=== PATIENT | male | born 1980 | race Caucasian/White ===

== ENCOUNTER 2020-04-11 16:28 | Emergency (ER) | payer OTHER ==
--- OUTSIDE RECORDS SUMMARY | 2020-04-11 16:30 | XMS REPORT | Continuity of Care Document ---
:1980 Author Organization [facility] t Address [address] [place] [address] Care Team Providers Name Role Phone Lab, [facility] Pob I Attending Clinician Unavailable Jann SOSA Attending Clinician Problems This patient has no known problems. Allergies, Adverse Reactions, Alerts This patient has no known allergies or adverse reactions. Medications This patient has no known medications. Procedures This patient has no known procedures. Encounters Start End Encounter Admission Attending Care Care Encounter Source Date/Time Date/Time Type Type Clinicians Facility Department ID 2020-03-19 2020-03-19 Laboratory Lab, [facility] [id number] 16:43:13 17:03:13 Only Fam Pob I Health [id number] [place] [id number] Professio [phone] nal 044 Office Building One 2019-06-19 2019-06-19 Office Jann, [facility] [id number] 15:03:31 15:23:31 Visit Riley [place] [id number] [place] [id number] Professio [phone] nal 059 Building Results This patient has no known results.
--- OUTSIDE RECORDS SUMMARY | 2020-04-11 16:30 | XMS REPORT | Summary of Care ---
:1980 Author Organization [facility] Address [address] [place] [address] Care Team Providers Name Role Phone [place], [place] Chaitanya Jimenez [facility] Primary Care Provider + Reason for Visit Reason Comments Cough Headache Shortness of Breath Encounter Details Date Type Department Care Team Description 03/19/2020 Laboratory Only [facility] Family MartineKacy, RABIES INSPECTOR [address] [place] [address] [phone] Exposure to Medicine - [facility], Adc Fam Pob I SARS-associated [address] [place] [address] coronavir[address] s ([address] Dx) [place] [address] Allergies No Known Allergiesdocumented as of this encounter (statuses as of 03/19/2020) Medications Medication Sig Dispensed Refills Start Date End Date Status metFORMIN 500 mg tablet Take 500 mg by 0 Active mouth 2 (two) times daily with meals. ranitidine 150 mg Take 150 mg by 0 Active capsule mouth 2 (two) times daily. buPROPion XL 150 mg 24 Take 150 mg by 0 Active hr tablet mouth daily. traZODone 50 mg tablet Take 50 mg by 0 Active mouth at bedtime. atorvastatin 40 mg Take 40 mg by 0 Active tablet mouth at bedtime. albuterol 0.63 mg/3 mL Use 1 Ampule as 0 Active nebulizer solution directed every 6 (six) hours as needed for Wheezing. amlodipine-benazepril Take 1 capsule by 0 Active 5-10 mg per capsule mouth daily. aspirin 81 mg chewable Take 81 mg by 0 Active tablet mouth daily. lisinopril 20 mg tablet Take 20 mg by 0 Active mouth daily. metoprolol succinate XL Take 100 mg by 0 Active 100 mg 24 hr tablet mouth daily. cloNIDine 0.1 mg Take 1 tablet by 30 tablet 0 04/01/2019 Active tabletIndications: mouth 2 (two) Fever, unspecified times daily. T 1 fever cause, tablet for high Hypertension, bp sys> 200 or unspecified type, dys >100. Take no Myalgia, Nonintractable more than 2 headache, unspecified tablets and see chronicity pattern, your doctor for unspecified headache your blood type, Transient pressure. disorientation documented as of this encounter (statuses as of 03/19/2020) Active Problems No known active problemsdocumented as of this encounter (statuses as of 03/19/2020) Immunizations Name Administration Dates Next Due Influenza Virus Vaccine Quad IM 3+ YRS 12/03/2018 documented as of this encounter Social History Tobacco Use Types Packs/Day Years Used Date Former Smoker Cigarettes 1 17 Quit: 05/2018 Smokeless Tobacco: Never Used Sex Assigned at Date Recorded Not on file documented as of this encounter Last Filed Vital Signs Not on filedocumented in this encounter Nursing Notes Keo Link - 03/19/2020 4:40 PM CSTDojany Ellis is a 40 year old male here for COVID Screening with a Nasopharyngeal Swab All droplet and contact precautions taken with appropriate PPE worn while interacting with patient. ? Goggles ? N95 Mask ? Gloves ? Gown RR 18 Pulse Ox 94% Patient educated on plan of care for visit, swabbing technique, risks and benefits of test and length of time to receive results. Verbal consent obtained to perform test. CDC Fact Sheet for Patients nCoV Diagnostic Panel dated 06/17/2019 and Factsheet What to Do if Sick with COVID 19 05/28/19 provided. Patient swabbed per appropriate nasopharyngeal technique, and patient tolerated well. Patient was discharged from the testing clinic in stable condition. Keo Link 03/19/2020 4:48 PM documented in this encounter Plan of Treatment Name Type Priority Associated Diagnoses Order S chedule COVID-19 (MOLECULAR LAB Routine Exposure to Expected : 03/19/2020, TESTING SARS-associated Expires: 021 NUCLEIC ACID coronavirus AMPLIFICATION) Health Maintenance Due Date Last Done Comments HgA1C 1979 EYE EXAM 1988 LDL-C 1988 URINE MICROALBUMIN 1988 FOOT EXAM 1996 DTaP,Tdap,and Td Vaccines (1 1997 - Tdap) INFLUENZA VACCINE (#1) 2019 12/03/2018 CREATININE (SERUM) 04/01/2020 04/01/2019, 12/17/2018, 01/20/2015 Depression Screening 06/18/2020 06/19/2019 PNEUMOCOCCAL 0-64 YEARS Aged Out No longe r eligible based COMBINED SERIES on patient's age to complete this to [facility] documented as of this encounter Results Not on filedocumented in this encounter Visit Diagnoses Diagnosis Exposure to SARS-associated coronavirus - Primary documented in this encounter Additional Health Concerns Infection Onset Date Last Indicated Resolved Time COVID-19 Rule Out 03/19/2020 03/19/2020 documented as of this encounter documented as of this encounter
[2020-04-11 17:17] LABS: Absolute Lymphocytes (CBC) 1.6 K/uL (0.7-4.9); Basophils % 0.6 % (0-1.3); Hematocrit 47.5 % (39.6-49.0); Lymphocytes % 35.2 % (15.3-44.8); MPV 8.9 fL (7.6-11.3); Protime INR 1.03; RBC Red Blood Cell Count 5.16 M/uL (4.33-5.43)
[2020-04-11 17:31] LABS: ALT/SGPT 38 U/L (12-78); AST/SGOT 12 U/L (15-37); Albumin 4.5 g/dL (3.4-5.0); Alkaline Phosphatase 65 U/L (45-117); BUN Blood Urea Nitrogen 9 mg/dL (7-18); Bicarbonate 35 mmol/L (21-32); Bilirubin Direct 0.3 mg/dL (0-0.2); Bilirubin Total 1.1 mg/dL (0.2-1.0); Glucose Level 237 mg/dL (74-106); Magnesium 2.1 mg/dL (1.8-2.4); NT PRO-BNP 70 pg/mL (<125); Potassium 3.6 mmol/L (3.5-5.1); Protein, Total 8.1 g/dL (6.4-8.2); Sodium Level 137 mmol/L (136-145); Troponin (Emerg Dept Use Only) < 0.02 ng/mL (0.0-0.045)
[2020-04-11] MEDS ORDERED: METOPROLOL TAR 50 MG TAB ONE (18:33)
--- NOTE | 2020-04-11 18:44 | RAD REPORT ---
EXAM DESCRIPTION: CT - Angio Aorta For Dissection - 04/11/2020 6:34 pm CLINICAL HISTORY: CHEST PAIN COMPARISON: None. TECHNIQUE: Dynamically enhanced 3 mm thick images of the chest, abdomen, and upper pelvis were obtai jose during administration of approximately 150mL Isovue 370 IV contrast. Sagittal and coronal reconst ruction images were generated using MIP and reviewed. Exam utilizes a protocol to evaluate entire cou rse of the aorta. All CT scans are performed using dose optimization technique as appropriate and may include automated exposure control or mA/KV adjustment according to patient size. FINDINGS: Aorta is normal in diameter with no dissection or other acute aortic findings. Reconstruct ion images show no significant findings. Pulmonary arteries are normal as well. No cardiomegaly, pericardial thickening or pericardial effusio n. No mass or infiltrate in the lung parenchyma. A few small 5 mm or less subpleural nodules are seen. N o pleural thickening, pleural effusion or pneumothorax. No abnormal mediastinal or hilar mass or lymphadenopathy seen. No chest wall mass or abnormal axillar y lymphadenopathy. Celiac, SMA and renal arteries show no suspicious findings. Solid abdominal viscera and bowel show no significant findings. Liver shows fatty infiltration. No mass or abnormal abdominal or pelvic lymph adenopathy. Rectosigmoid anastomotic sites show no suspicious findings. No free air, free fluid or in flammatory stranding. No urinary bladder abnormality. IMPRESSION: Negative CT scan of the aorta. No other significant findings on chest, abdomen and upper pelvis examination.Incidental note made of fatty infiltration of the liver.
--- NOTE | 2020-04-11 19:48 | ER ---
[facility] Name: Artemio Ellis Age: 40 yrs Sex: Male : 1980 Arrival Date: 04/11/2020 Time: 16:34 Bed 16 Private MD: Diagnosis: Chest pain on breathing;Chest pain, unspecified Presentation: 04/11 16:35 Chief complaint: EMS states: pt having chest pain this morning, [facility], no st elevation noted on [facility] e[facility], [facility], the pain did resolve, said he was sitting when it happened, he is tachy but says pain has resolved now. Coronavirus screen: At this time, the client does not indicate any symptoms associated with coronavirus-19. Ebola Screen: Patient denies travel to an Ebola-affected area in the 21 days before illness onset. Initial Sepsis Screen: Does the patient meet any 2 criteria? No. Patient's initial sepsis screen is negative. Initial Sepsis Screen: Does the patient have a suspected source of infection? No. Patient's initial sepsis screen is negative. Risk Assessment: Do you want to hurt yourself or someone else? Patient reports no desire to harm self or others. Onset of symptoms was April 11, 2020. 16:35 Method Of Arrival: EMS: [facility] tw2 16:35 Acuity: YASIR 3 tw2 Triage Assessment: 16:45 General: Appears in no apparent distress. obese, well groomed, Behavior is calm, tw2 cooperative, appropriate for age. Pain: Denies pain. Historical: - Allergies: 16:45 No Known Allergies; tw2 - Home Meds: 16:45 albuterol sulfate 1.25 mg/3 mL Inhl nebu 3 mL 3 times per day [Active]; amlodipine 5 mg tw2 tab 1 tab once daily [Active]; aspirin 81 mg Oral chew 1 tab once daily [Active]; atorvastatin 40 mg oral tab 1 tab once daily [Active]; bupropion HCl 300 mg Oral Tb24 1 tab once daily [Active]; lisinopril 20 mg Oral tab 1 tab once daily [Active]; trazodone 50 mg Oral tab 1 tab 3 times per day [Active]; - PMHx: 16:45 Alcoholism; Diabetes - NIDDM; GERD; hirschsprungs syndrome; Hypertension; no-suicide tw2 attempts; Pneumonia; ptsd-on disability; Sleep Apnea; suicidal ideation; hiatal hernia; obstructive sleep apnea; - PSHx: 16:45 abdominal sx; Cholecystectomy; tw2 - Immunization history:: Adult Immunizations. - Social history:: Smoking status: Smoking status: Patient denies any tobacco usage or history of. Screenin:43 Abuse screen: Denies threats or abuse. Denies injuries from another. Nutritional ec1 screening: No deficits noted. Tuberculosis screening: No symptoms or risk factors identified. Fall Risk None identified. Assessment: 16:42 General: Appears in no apparent distress. comfortable, Behavior is calm, cooperative. ec1 Pain: Denies pain. Pain: Denies pain. Neuro: Level of Consciousness is awake, alert, obeys commands. Cardiovascular: Reports Rhythm is sinus tachycardia. Respiratory: Airway is patent Respiratory effort is even, unlabored, Breath sounds are clear bilaterally. GI: No signs and/or symptoms were reported involving the gastrointestinal system. : No signs and/or symptoms were reported regarding the genitourinary system. EENT: No signs and/or symptoms were reported regarding the EENT system. 18:02 Reassessment: No changes from previously documented assessment. Patient and/or family ec1 updated on plan of care and expected duration. Pain level reassessed. Pt reports pain at 3/10 in left chest. Pain: Pain does not radiate. Pain began today this am. 20:09 General: Appears in no apparent distress. comfortable, Behavior is calm, cooperative, zb appropriate for age. Pain: Denies pain. Neuro: Level of Consciousness is awake, alert, obeys commands, Oriented to person, place, time, situation. Cardiovascular: Reports None Heart tones S1 S2 present Rhythm is regular. Respiratory: Airway is patent Respiratory effort is even, unlabored, Respiratory pattern is regular, symmetrical, Breath sounds are clear bilaterally. GI: No signs and/or symptoms were reported involving the gastrointestinal system. : No signs and/or symptoms were reported regarding the genitourinary system. EENT: No signs and/or symptoms were reported regarding the EENT system. Derm: Skin is intact, is healthy with good turgor, Skin is dry, Skin is normal, Skin temperature is warm. Musculoskeletal: Circulation, motion, and sensation intact. Capillary refill < 3 seconds, in bilateral fingers. Range of motion: intact in all extremities. Vital Signs: 16:35 Temp 99(TE); Weight 96.62 kg (R); Height 5 ft. 8 in. (172.72 cm); Pain 0/10; tw2 16:35 Resp 18; tw2 17:30 BP 150 / 112; Pulse 97; Resp 16 S; Pulse Ox 91% on R/A; ec1 17:30 BP 144 / 108; Pulse 99; Resp 16 S; Pulse Ox 96% on R/A; Pain 3/10; ec1 18:52 BP 141 / 104; Pulse 80; Resp 16 S; Pulse Ox 96% on R/A; ec1 19:58 BP 135 / 97; Pulse 70; Resp 17; Temp 97.8; Pulse Ox 97% ; Pain 0/10; ar5 16:35 Body Mass Index 32.39 (96.62 kg, 172.72 cm) tw2 ED Course: 16:34 Patient arrived in ED. tw2 16:38 Ayesha Schwab [facility]-C [facility] kb 16:38 Jarred Faust MD is Attending Physician. kb 16:40 Triage completed. tw2 16:42 Beverley Maciel, LEEANNA is Primary Nurse. ec1 16:45 Arm band placed on. tw2 17:05 Inserted saline lock: 20 gauge in left hand, using aseptic technique. Blood collected. ec1 17:06 Patient has correct armband on for positive identification. Bed in low position. ec1 clinical biostatistics director on. 17:24 XRAY Chest (1 view) In Process Unspecified. EDMS 18:01 Patient maintains SpO2 saturation greater than 95% on room air. ec1 18:34 CT Aorta for Dissection In Process Unspecified. EDMS 19:23 Report given to Dora DURÁN. ec1 20:10 No provider procedures requiring assistance completed. IV discontinued, intact, zb bleeding controlled, No redness/swelling at site. Pressure dressing applied. Administered Medications: 18:19 Drug: Metoprolol TARTRATE (Lopressor) 50 mg Route: PO; ec1 19:25 Follow up: Response: Blood pressure is lowered ec1 Outcome: 19:48 Discharge ordered by . kb 20:10 Discharged to home ambulatory. zb 20:10 Condition: stable 20:10 Discharge instructions given to patient, Instructed on discharge instructions, follow up and referral plans. Demonstrated understanding of instructions, follow-up care. 20:10 Patient left the ED. zb Signatures: Dispatcher [employer] EDAyesha Edwards, TONY FRASER-Mayra Betts RN RN tw2 Zoraida Michele ar5 Dora Copeland RN RN Beverley Mccarthy RN RN ec1 Corrections: (The following items were deleted from the chart) 19:59 19:58 BP 135 / 97; Pulse 10bpm; Resp 17bpm; Pulse Ox 97%; Temp 97.8F; Pain 0/10; ar5 ar5
--- NOTE | 2020-04-11 19:48 | EDPHYS ---
Physician Documentation [facility] Name: Artemio Ellis Age: 40 yrs Sex: Male : 1980 Arrival Date: 04/11/2020 Time: 16:34 Bed 16 Private MD: ED Physician Jarred Faust HPI: 04/11 17:48 This 40 yrs old Male presents to ER via EMS with complaints of Chest Pain > kb 28 y/o. 17:48 The patient or guardian reports chest pain that is located primarily in the anterior kb chest wall, left. Onset: this morning. The pain does not radiate. Associated signs and symptoms: Pertinent positives: nausea. The chest pain is described as a pressure. Duration: The patient or guardian reports multiple episodes, that are intermittent, with no pattern. Modifying factors: The symptoms are alleviated by nothing. the symptoms are aggravated by nothing. Severity of pain: At its worst the pain was mild moderate in the emergency department the pain has resolved. The patient has not experienced similar symptoms in the past. The patient has been recently seen by a physician: the patient's primary care provider, with similar presenting complaints, and was sent to the [facility] Emergency Department for further evaluation. Pt reports left upper chest pain that started this morning while at work. Reports it has been intermittent throughout the day with nausea at one point and back pain at another time. Pt denies any symptoms at this time. [place] for [place] and was sent here by EMS for evaluation.. Historical: - Allergies: 16:45 No Known Allergies; tw2 - Home Meds: 16:45 albuterol sulfate 1.25 mg/3 mL Inhl nebu 3 mL 3 times per day [Active]; amlodipine 5 mg tw2 tab 1 tab once daily [Active]; aspirin 81 mg Oral chew 1 tab once daily [Active]; atorvastatin 40 mg oral tab 1 tab once daily [Active]; bupropion HCl 300 mg Oral Tb24 1 tab once daily [Active]; lisinopril 20 mg Oral tab 1 tab once daily [Active]; trazodone 50 mg Oral tab 1 tab 3 times per day [Active]; - PMHx: 16:45 Alcoholism; Diabetes - NIDDM; GERD; hirschsprungs syndrome; Hypertension; no-suicide tw2 attempts; Pneumonia; ptsd-on disability; Sleep Apnea; suicidal ideation; hiatal hernia; obstructive sleep apnea; - PSHx: 16:45 abdominal sx; Cholecystectomy; tw2 - Immunization history:: Adult Immunizations. - Social history:: Smoking status: Smoking status: Patient denies any tobacco usage or history of. ROS: 17:47 Constitutional: Negative for fever, chills, and weight loss, Respiratory: Negative for kb shortness of breath, cough, wheezing, and pleuritic chest pain, Back: Negative for injury and pain, MS/Extremity: Negative for injury and deformity, Skin: Negative for injury, rash, and discoloration, Neuro: Negative for headache, weakness, numbness, tingling, and seizure. 17:47 Cardiovascular: Positive for chest pain, Negative for edema, orthopnea, palpitations, paroxysmal nocturnal dyspnea. 17:47 Abdomen/GI: Positive for nausea, Negative for abdominal pain, vomiting, diarrhea. Exam: 17:47 Constitutional: This is a well developed, well nourished patient who is awake, alert, kb and in no acute distress. Head/Face: Normocephalic, atraumatic. Chest/axilla: Normal chest wall appearance and motion. Nontender with no deformity. No lesions are appreciated. Cardiovascular: Regular rate and rhythm with a normal S1 and S2. No gallops, murmurs, or rubs. Normal PMI, no JVD. No pulse deficits. Respiratory: Lungs have equal breath sounds bilaterally, clear to auscultation and percussion. No rales, rhonchi or wheezes noted. No increased work of breathing, no retractions or nasal flaring. Abdomen/GI: Soft, non-tender, with normal bowel sounds. No distension or tympany. No guarding or rebound. No evidence of tenderness throughout. Skin: Warm, dry with normal turgor. Normal color with no rashes, no lesions, and no evidence of cellulitis. MS/ Extremity: Pulses equal, no cyanosis. Neurovascular intact. Full, normal range of motion. Neuro: Awake and alert, GCS 15, oriented to person, place, time, and situation. Cranial nerves II-XII grossly intact. Motor strength 5/5 in all extremities. Sensory grossly intact. Cerebellar exam normal. Normal gait. Vital Signs: 16:35 Temp 99(TE); Weight 96.62 kg (R); Height 5 ft. 8 in. (172.72 cm); Pain 0/10; tw2 16:35 Resp 18; tw2 17:30 BP 150 / 112; Pulse 97; Resp 16 S; Pulse Ox 91% on R/A; ec1 17:30 BP 144 / 108; Pulse 99; Resp 16 S; Pulse Ox 96% on R/A; Pain 3/10; ec1 18:52 BP 141 / 104; Pulse 80; Resp 16 S; Pulse Ox 96% on R/A; ec1 19:58 BP 135 / 97; Pulse 70; Resp 17; Temp 97.8; Pulse Ox 97% ; Pain 0/10; ar5 16:35 Body Mass Index 32.39 (96.62 kg, 172.72 cm) tw2 MDM: 16:38 Patient medically screened. kb 17:47 Data reviewed: vital signs, nurses notes. Data interpreted: Pulse oximetry: on room air kb is 100 %. Interpretation: normal. 17:48 The patient was not given aspirin in the Emergency Department. Patient reports taking kb aspirin within the past 24 hours. 19:47 Counseling: I had a detailed discussion with the patient and/or guardian regarding: the kb historical points, exam findings, and any diagnostic results supporting the discharge/admit diagnosis, lab results, radiology results, the need for outpatient follow up, a electroplating technician, to return to the emergency department if symptoms worsen or persist or if there are any questions or concerns that arise at home. 04/11 16:44 Order name: Basic Metabolic Panel; Complete Time: 17:32 kb 04/11 16:44 Order name: CBC with Diff; Complete Time: 17:42 kb 04/11 16:44 Order name: LFT's; Complete Time: 17:32 kb 04/11 16:44 Order name: Magnesium; Complete Time: 17:32 kb 04/11 16:44 Order name: NT PRO-BNP; Complete Time: 17:32 kb 04/11 16:44 Order name: PT-INR; Complete Time: 17:39 kb 04/11 16:44 Order name: Troponin (emerg Dept Use Only); Complete Time: 17:32 kb 04/11 16:44 Order name: XRAY Chest (1 view); Complete Time: 20:03 kb 04/11 16:44 Order name: EKG; Complete Time: 16:45 kb 04/11 16:44 Order name: Cardiac monitoring; Complete Time: 16:57 kb 04/11 18:05 Order name: CT Aorta for Dissection; Complete Time: 18:58 kb 04/11 18:59 Order name: Troponin (emerg Dept Use Only); Complete Time: 19:44 kb 04/11 18:59 Order name: EKG; Complete Time: 18:59 kb 04/11 16:44 Order name: EKG - Nurse/Tech; Complete Time: 17:13 kb 04/11 16:44 Order name: IV Saline Lock; Complete Time: 17:06 kb 04/11 16:44 Order name: Labs collected and sent; Complete Time: 17:06 kb 04/11 16:44 Order name: O2 Per Protocol; Complete Time: 17:06 kb 04/11 16:44 Order name: O2 Sat Monitoring; Complete Time: 17:06 kb 04/11 17:47 Order name: Vital Signs; Complete Time: 18:01 kb 04/11 18:59 Order name: EKG - Nurse/Tech; Complete Time: 19:32 kb Administered Medications: 18:19 Drug: Metoprolol TARTRATE (Lopressor) 50 mg Route: PO; ec1 19:25 Follow up: Response: Blood pressure is lowered ec1 Disposition: 04/12 07:02 Co-signature as Attending Physician, Jarred Faust MD. rn Disposition: 04/11/20 19:48 Discharged to Home. Impression: Chest pain on breathing, Chest pain, unspecified. - Condition is Stable. - Discharge Instructions: Nonspecific Chest Pain, [id number]. - Medication Reconciliation Form, Thank You Letter, Antibiotic Education, Prescription Opioid Use form. - Follow up: Emergency Department; When: As needed; Reason: Worsening of condition. Follow up: Private Physician; When: 2 - 3 days; Reason: Recheck today's complaints, Continuance of care, Re-evaluation by your physician. Signatures: Dispatcher [employer] Ayesha Chavira, BRIA-C RETAIL EVENT COORDINATOR-Jarred Pereira MD MD rn Wise, Tara, RN RN tw2 Dora Copeland RN Beverley Romero RN RN ec1 Corrections: (The following items were deleted from the chart) 04/11 20:10 19:48 04/11/2020 19:48 Discharged to Home. Impression: Chest pain on breathing; Chest zb pain, unspecified. Condition is Stable. Forms are Medication Reconciliation Form, Thank You Letter, Antibiotic Education, Prescription Opioid Use. Follow up: Emergency Department; When: As needed; Reason: Worsening of condition. Follow up: Private Physician; When: 2 - 3 days; Reason: Recheck today's complaints, Continuance of care, Re-evaluation by your physician. kb
--- NOTE | 2020-04-11 20:01 | RAD REPORT ---
EXAM DESCRIPTION: RAD - Chest Single View - 04/11/2020 5:23 pm CLINICAL HISTORY: CHEST PAIN COMPARISON: None TECHNIQUE: AP portable chest image was obtained 04/11/2020 5:23 pm . FINDINGS: Lungs are clear. Low lung volumes noted. Cardiac silhouette is prominent, accentuated by b lianna habitus, portable technique and shallow inspiration affects. No significant failure or volume ove rload suspected. No measurable pleural effusion and no pneumothorax. No acute bony abnormality seen. No acute aortic findings suspected. IMPRESSION: No acute cardiopulmonary process.
[2020-04-11 20:29] VITALS: BP 135/97; TEMP 97.8; O2SAT 97
--- NOTE | 2020-04-11 22:30 | EKG ---
Test Date: 2020-04-11 Test Time: 17:04:11 Meat Grading Machine Operator: MANSOOR MEASUREMENT RESULTS: Intervals: Rate: 102 [place]: 150 QRSD: 84 QT: 344 QTc: 448 [place]: P: 63 [place]: 150 QRS: 112 T: 54 INTERPRETIVE STATEMENTS: Sinus tachycardia Left posterior fascicular block Abnormal ECG No previous ECG available for comparison Electronically Signed On 04-11-20 22:29:17 PROSTHETIST by Román Pierce
--- NOTE | 2020-04-13 07:28 | EKG ---
Test Date: 2020-04-11 Test Time: 19:30:01 Office Manager Receptionist: CAMILLA MEASUREMENT RESULTS: Intervals: Rate: 71 [place]: 176 QRSD: 86 QT: 404 QTc: 439 [place]: P: 1 [place]: 176 QRS: -3 T: 29 INTERPRETIVE STATEMENTS: Normal sinus rhythm Normal ECG Compared to ECG 04/11/2020 17:04:11 Sinus tachycardia no longer present Left posterior fascicular block no longer present Electronically Signed On 04-13-20 07:24:23 PODIATRIC ASSISTANT by Román Pierce
== END 2020-04-11 20:10 | disposition home or self-care (01) ==
LOC: ER 16:28
DX: R07.1 Chest pain on breathing (principal); I10 Essential (primary) hypertension; J44.9 Chronic obstructive pulmonary disease, unspecified; E11.9 Type 2 diabetes mellitus without complications; K21.9 Gastro-esophageal reflux disease without esophagitis; F43.10 Post-traumatic stress disorder, unspecified; G47.33 Obstructive sleep apnea (adult) (pediatric)
CPT/HCPCS: 93005 ×2; 85025; 80048; 36415; 83735; 85610; 80076; 84484 ×2; 83880; 71275; 74175; 71045; 99285; Q9967

== ENCOUNTER 2020-05-05 14:43 | Emergency (ER) | payer SELFPAY ==
--- OUTSIDE RECORDS SUMMARY | 2020-05-05 15:00 | XMS REPORT | Continuity of Care Document ---
:1980 Author Organization [facility] t Address [address] [place] [address] Care Team Providers Name Role Phone Lab, Fam Pob I Attending Clinician Unavailable Jann SOSA [...] Facility Department ID 2020-03-19 2020-03-19 Laboratory Lab, [facility] [id number] 16:43:13 17:03:13 Only Fam Pob Health [id number] [place] [id number] Professio [phone] nal [phone] Office Building One 2019-06-19 2019-06-19 Office Jann, [facility] [id number] 15:03:31 15:23:31 Visit Riley Mcdonald [id number] [place] [id number] Professio [phone] nal [phone] Building Results This patient has no known results.
--- NOTE | 2020-05-05 18:57 | ER ---
Nurse's Notes [facility] Name: Artemio Ellis Age: 40 yrs Sex: Male : 1980 Arrival Date: 05/05/2020 Time: 14:44 Bed Waiting Private MD: Diagnosis: Presentation: 05/05 15:43 Chief complaint: Patient states: BGL this morning at 256. at 1300 BGL was 375. at 1400 ca1 BGL 350. Reports feeling tired. BGL 282 in triage. Coronavirus screen: Client denies travel out of the [place] in the last 14 days. fatigue, Client presents with at least one sign or symptom that may indicate coronavirus-19. Standard/surgical mask placed on the client. Provider contacted for isolation considerations. Ebola Screen: Patient negative for fever greater than or equal to 101.5 degrees Fahrenheit, and additional compatible Ebola Virus Disease symptoms Patient denies exposure to infectious person. Patient denies travel to an Ebola-affected area in the 21 days before illness onset. No symptoms or risks identified at this time. Initial Sepsis Screen: Does the patient meet any 2 criteria? No. Patient's initial sepsis screen is negative. Does the patient have a suspected source of infection? No. Patient's initial sepsis screen is negative. Risk Assessment: Do you want to hurt yourself or someone else? Patient reports no desire to harm self or others. Onset of symptoms was May 05, 2020. 15:43 Method Of Arrival: Ambulatory ca1 15:43 Acuity: YASIR 3 ca1 Historical: - Allergies: 15:46 No Known Allergies; ca1 - PMHx: 15:46 Alcoholism; Diabetes - NIDDM; GERD; hiatal hernia; hirschsprungs syndrome; ca1 Hypertension; no-suicide attempts; OBSTRUCTIVE SLEEP APNEA; Pneumonia; ptsd-on disability; Sleep Apnea; suicidal ideation; - PSHx: 15:46 abdominal sx; Cholecystectomy; ca1 - Immunization history:: Flu vaccine is up to date. - Social history:: Smoking status: Patient/guardian denies using tobacco, the patient reports quitting approximately 2 years ago. Assessment: 18:55 Reassessment: JUANITO Brito tech states pt left at 1827. ca1 Vital Signs: 15:43 BP 147 / 96; Pulse 83; Resp 16 S; Temp 98.3(TE); Pulse Ox 95% on R/A; Weight 96.62 kg ca1 (R); Height 5 ft. 7 in. (170.18 cm) (R); Pain 0/10; 15:43 Body Mass Index 33.36 (96.62 kg, 170.18 cm) ca1 ED Course: 14:44 Patient arrived in ED. as 15:44 Triage completed. ca1 15:46 Arm band placed on right wrist. ca1 18:55 Patient's name was called from ER lobby. No response. Unable to locate patient. Will ca1 disposition as left without being seen by a provider. Administered Medications: No medications were administered Point of Care Testing: Ranges: Outcome: 18:56 Patient left the ED. ca1 Signatures: Torie Razo Cheryl RN RN ca1 Corrections: (The following items were deleted from the chart) 15:46 15:43 Chief complaint: Patient states: BGL this morning at 256. at 1300 BGL was 375. at ca1 1400 BGL 350. Reports feeling tired. ca1
[2020-05-05 22:11] VITALS: BP 147/96; TEMP 98.3; O2SAT 95
== END 2020-05-05 18:56 | disposition left against medical advice (07) ==
LOC: ER 14:43
DX: R53.83 Other fatigue (principal); Z53.21 Procedure and treatment not carried out due to patient leaving prior to being seen by health care provider
CPT/HCPCS: 82947; 99281